=== PATIENT | female | born 1975 | race Caucasian/White ===

== ENCOUNTER 2019-06-04 12:02 | Emergency (ER) | payer OTHER ==
[2019-06-04 12:08] VITALS: BP 130/82
[2019-06-04] MEDS ORDERED: DOXEPIN 10 MG CAPSULE PO STA (12:24)
[2019-06-04] MEDS ORDERED: predniSONE 20 MG TABLET PO STA (12:24)
--- NOTE | 2019-06-04 12:24 | ED Physician Documentation ---
History of Present Illness - Stated complaint Stated Complaint: ALLERGIC REACTION - Chief complaint Chief Complaint: Allergic Rx - History obtained from History obtained from: Patient - History of Present Illness Timing: Other ([place] 6 days ago and had multiple times when she contacted fire coral in multiple areas. She has multiple areas of rash venous and diffuse itching and burning without respiratory issues or sore throat. She is never had a reaction like this before.) Review of Systems Constitutional: reports: Fatigue. denies: Fever, Chills Throat: denies: Sore throat Respiratory: denies: Dyspnea, Cough PD PAST MEDICAL HISTORY - Present Medications Home Medications: Ambulatory Orders Medication Instructions Recorded Confirmed Doxepin [SINEquan] 10 mg PO TID PRN #30 capsule 06/04/19 predniSONE [Deltasone] 60 mg PO DAILY 5 Days #15 tablet 06/04/19 - Allergies Allergies/Adverse Reactions: Allergies Allergy/AdvReac Type Severity Reaction Status Date / Time No Known Drug Allergies Allergy Verified 06/04/19 12:07 PD ED PE NORMAL - Vitals Vital signs reviewed: Yes - General General: Alert and oriented X 3, No acute distress - Derm Derm: Other (She has multiple areas of contact dermatitis, anterior right thigh measuring about 6 x 2 cm, lateral left thigh/hip measuring about 10 x 5 cm, right wrist, small, abdominal wall, near the Right scapula measuring about 10 x 5 cm.) - Neuro Neuro: Alert and oriented X 3, Normal speech Results - Vitals Vitals: Vital Signs - 24 hr 06/04/19 12:05 Temperature 36.9 C Heart Rate 100 Respiratory 20 Rate Blood Pressure 130/82 H O2 Saturation 99 Oxygen O2 Source Room air PD MEDICAL DECISION MAKING - ED course ED course: 43-year-old woman with contact dermatitis relating to coral, given the size and distribution it would be more amenable to oral steroids than topical. Departure - Departure Disposition: 01 Home, Self Care Clinical Impression: Contact dermatitis Qualifiers: Contact dermatitis type: allergic Contact dermatitis trigger: other trigger Qualified Code(s): L23.89 - Allergic contact dermatitis due to other agents Condition: Good Record reviewed to determine appropriate education?: Yes Instructions: ED Dermatitis Contact Prescriptions: Doxepin [SINEquan] 10 mg PO TID PRN #30 capsule PRN Reason: Itching predniSONE [Deltasone] 60 mg PO DAILY 5 Days #15 tablet Comments: Return for new or worse symptoms. Discharge Date/Time: 06/04/19 12:36
== END 2019-06-04 12:36 | disposition home or self-care (01) ==
LOC: ED 12:02
DX: L23.89 Allergic contact dermatitis due to other agents (principal)
CPT/HCPCS: 99282; 99283; A9270; J7512